=== PATIENT | female | born 1990 | race Caucasian/White ===

== ENCOUNTER 2016-11-25 08:19 | Emergency (ER) | payer BC ==
[~2016-11-25] VITALS: Ht 160 cm; Wt 94.4 kg
[~2016-11-25 08:19] MED LIST: OMEP20CA9 PO; ONDA4TAB10 SL; ZIPR20CA PO; ZNTT/150 PO
[2016-11-25 08:22] VITALS: Ht 160 cm; Wt 94.4 kg
[2016-11-25] MEDS ORDERED: SODIUM CHLORIDE 0.9% 1000ML 1,000 ML IV STA ×2 (08:34→09:07)
[2016-11-25 08:59] LABS: BASO % 0.3 %; BASO ABS # 0.03 K/uL (0-0.2); COMPLETE YES; EOS % 7.9 %; HEMATOCRIT 44.5 % (37-47); IG% 0.3 %; LYMPH % 25.2 %; LYMPH ABS # 2.76 K/uL (1.2-3.4); MEAN CELL VOLUME 91.2 fL (80-100); MEAN CORPUSCULAR HEMOGLOBIN 32.4 pg (25-34); MEAN CORPUSCULAR HGB CONC 35.5 g/dl (32-36); MONO % 4.6 %; NEUT % 61.7 %; PLATELET COUNT 235 K/uL (130-400); RED BLOOD COUNT 4.88 M/uL (4.2-5.4); WHITE BLOOD COUNT 10.97 K/uL (4.8-10.8)
[2016-11-25 09:05] LABS: CREATININE 0.84 mg/dl (0.60-1.20); POTASSIUM 3.8 mmol/L (3.5-5.1)
[2016-11-25] MEDS ORDERED: PROMETHAZINE HCL INJ 25 MG in SODIUM CHLORIDE 0.9% 50ML 50 ML IV STA (09:07)
[2016-11-25] MEDS ORDERED: FAMOTIDINE 20MG/102 ML D5W IV STA (09:07)
[2016-11-25] MEDS ORDERED: DiphenhydrAMINE HCL 50 MG/ML VIAL IV STA (09:07)
[2016-11-25] MEDS ORDERED: FENTANYL CITRATE INJ 50 MCG/1 ML 2 ML VIAL IV STA (09:07)
[2016-11-25] MEDS ORDERED: GI COCKTAIL PO SCH (11:59)
[2016-11-25] MEDS ORDERED: FENTANYL CITRATE INJ 50 MCG/1 ML 2 ML VIAL IV ONE (12:00)
[2016-11-25] MEDS ORDERED: ALUMINUM/MAGNESIUM SUSP 30 ML UDC ONE (12:20)
[2016-11-25] MEDS ORDERED: LIDOCAINE HCL 2% VISC SOLN 20 ML UDC ONE (12:20)
[2016-11-25 13:08] LABS: URINE APPEARANCE CLEAR (CLEAR); URINE BILIRUBIN NEG (NEG); URINE COLOR DK YELLOW; URINE NITRITE NEG (NEG); URINE SPECIFIC GRAVITY 1.031 (1.000-1.030); UROBILINOGEN NEG (NEG); ZZUR CULT IF INDIC CLEAN CATCH NO
[2016-11-25 13:21] LABS: MANUAL MICROSCOPIC REQUIRED? NO; REVIEW REQ? NO
[2016-11-25] MEDS ORDERED: OMEP40CA41 PO (13:47)
[2016-11-25] MEDS ORDERED: PROM25SU28 PR (13:47)
[2016-11-25 13:57] VITALS: BP 113/73; PULSE 70; TEMP 36.7; O2SAT 95
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
[2017-05-10] MEDS ORDERED: METO-157 PO (13:54)
== END 2016-11-25 13:55 | disposition home or self-care (01) ==
LOC: C.EDB 08:20
DX: R10.10 Upper abdominal pain, unspecified (principal); G43.A0 Cyclical vomiting, in migraine, not intractable; K21.9 Gastro-esophageal reflux disease without esophagitis; F32.9 Major depressive disorder, single episode, unspecified; Z79.899 Other long term (current) drug therapy; F41.9 Anxiety disorder, unspecified

== ENCOUNTER 2016-11-27 16:07 | Emergency (ER) | payer BC ==
[~2016-11-27] VITALS: Ht 160 cm; Wt 96.7 kg
[~2016-11-27 16:07] MED LIST changes: +OMEP40CA41 PO; +PROM25SU28 PR
[2016-11-27 16:11] VITALS: TEMP 36.9; Ht 160 cm; Wt 96.7 kg
[2016-11-27] MEDS ORDERED: ONDANSETRON INJ 2 MG/ML 2 ML VIAL IV STA (16:23)
[2016-11-27] MEDS ORDERED: HYDROmorphone INJ 1 MG/ML SYR IV STA ×2 (16:23→17:37)
[2016-11-27] MEDS ORDERED: SODIUM CHLORIDE 0.9% 1000ML 1,000 ML IV STA (16:23)
[2016-11-27 16:33] VITALS: O2SAT 100
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
[2016-11-27 16:42] LABS: BASO % 0.1 %; BASO ABS # 0.02 K/uL (0-0.2); COMPLETE YES; EOS % 0.8 %; HEMATOCRIT 43.7 % (37-47); IG% 0.3 %; LYMPH % 15.6 %; LYMPH ABS # 2.16 K/uL (1.2-3.4); MEAN CELL VOLUME 88.5 fL (80-100); MEAN CORPUSCULAR HEMOGLOBIN 31.4 pg (25-34); MEAN CORPUSCULAR HGB CONC 35.5 g/dl (32-36); MEAN PLATELET VOLUME 10.2 fL (7.4-10.4); MONO % 3.7 %; NEUT % 79.5 %; PLATELET COUNT 258 K/uL (130-400); RED BLOOD COUNT 4.94 M/uL (4.2-5.4); WHITE BLOOD COUNT 13.87 K/uL (4.8-10.8)
[2016-11-27 16:47] LABS: ISTAT CARBON DIOXIDE 18 mEq/l (24-31); ISTAT CHLORIDE 106 mEq/L (101-112); ISTAT CREATININE 0.7 mg/dl (0.6-1.3); ISTAT HEMATOCRIT 43 % (37-47); ISTAT HEMOGLOBIN 14.6 g/dl (12.0-16.0); ISTAT IONIZED CALCIUM 1.12 mmol/l (1.12-1.32); ISTAT SODIUM 142 mEq/L (135-144)
--- NOTE | 2016-11-27 16:50 | DIAGNOSTIC IMAGING REPORT ---
SINGLE VIEW CHEST CLINICAL HISTORY: Atypical chest pain. FINDINGS: An AP, portable, upright chest radiograph is compared to study dated 03/12/2015. The examination is mildly degraded by portable technique and patient rotation. The cardiomediastinal silhouette is unremarkable. The lungs and pleural spaces are clear. No pneumothorax is seen. The bony thorax is grossly intact. Cholecystectomy clips are seen in the right upper quadrant. IMPRESSION: No active disease in the chest. Electronically signed by: Joey Rahman M.D. 11/27/2016 4:48 PM Dictated Date/Time: 11/27/2016 4:48 PM
[2016-11-27 17:05] LABS: PREG INTERNAL NEGATIVE QC NEG CLEAR BACKGROUND; PREG INTERNAL POSITIVE QC POS CONTROL LINE
[2016-11-27] MEDS ORDERED: LORAZEPAM 2 MG/ML 1 ML VIAL IV STA (17:07)
[2016-11-27 17:13] LABS: ALT/SGPT 27 U/L (12-78); BLOOD UREA NITROGEN 3 mg/dl (7-18); BUN/CREATININE RATIO 3.4 (10-20); CALCIUM 9.4 mg/dl (8.5-10.1); CARBON DIOXIDE 19 mmol/L (21-32); CHLORIDE 110 mmol/L (98-107); CREATININE 0.94 mg/dl (0.60-1.20); GLUCOSE 113 mg/dl (70-99); POTASSIUM 3.2 mmol/L (3.5-5.1); SODIUM 143 mmol/L (136-145)
[2016-11-27] MEDS ORDERED: OPTIRAY 320 IV PRN (17:15)
[2016-11-27 17:17] LABS: ALKALINE PHOSPHATASE 82 U/L (45-117); AST/SGOT 18 U/L (15-37); CKMB/CK RATIO 0.7 (0-3.0)
--- NOTE | 2016-11-27 17:20 | DIAGNOSTIC IMAGING REPORT ---
CT ANGIOGRAPHY OF THE CHEST, PULMONARY EMBOLUS PROTOCOL CLINICAL HISTORY: Left-sided chest pain and difficulty breathing. COMPARISON STUDY: Chest radiograph March 12, 2015 and November 27, 2016. TECHNIQUE: Following IV administration of 85 mL of Optiray-320, helical axial images of the chest were obtained utilizing the pulmonary embolus protocol. Maximal intensity projections and sagittal and coronal reformats were viewed on an independent 3D workstation. IV contrast was administered without complication. CT DOSE: 511.06 mGy.cm FINDINGS: No pulmonary emboli are identified. There is no evidence of thoracic aortic dissection. The size of the heart is normal. There is no pericardial effusion. Central airways are patent. There is no consolidation to suggest pneumonia. No pneumothorax or pleural effusion is present. Bony thorax and upper abdomen are unremarkable. There is a small cyst within the left lower lobe. Minimal opacities represent atelectasis. IMPRESSION: 1. No pulmonary emboli identified. 2. No acute intrathoracic findings. Electronically signed by: Timmy Campbell M.D. 11/27/2016 5:19 PM Dictated Date/Time: 11/27/2016 5:12 PM
[2016-11-27] MEDS ORDERED: POTASSIUM CHLORIDE 10 MEQ TABCR PO STA (17:50)
--- NOTE | 2016-11-27 18:23 | DIAGNOSTIC IMAGING REPORT ---
ABDOMINAL SERIES CLINICAL HISTORY: Abdominal pain. COMPARISON STUDY: CT of the abdomen and pelvis April 09, 2016. FINDINGS: Note is made of cholecystectomy clips and contrast within the collecting systems, ureters and bladder from recent contrast-enhanced chest CT. There is no free air. The bowel gas pattern is normal. Visualized skeletal structures are unremarkable. No urinary calculi are identified although sensitivity is diminished given the presence of contrast within the collecting systems. IMPRESSION: No free air or evidence of bowel obstruction. Electronically signed by: Timmy Campbell M.D. 11/27/2016 6:22 PM Dictated Date/Time: 11/27/2016 6:20 PM
[2016-11-27 19:02] LABS: URINE APPEARANCE CLEAR (CLEAR); URINE BILIRUBIN NEG (NEG); URINE COLOR YELLOW; URINE NITRITE NEG (NEG); URINE PH 8.5 (4.5-7.5); URINE SPECIFIC GRAVITY > 1.045 (1.000-1.030); UROBILINOGEN NEG (NEG); ZZUR CULT IF INDIC CLEAN CATCH NO
[2016-11-27 19:08] LABS: MANUAL MICROSCOPIC REQUIRED? NO; REVIEW REQ? NO
[2016-11-27] MEDS ORDERED: MAGNESIUM CITRATE 296 ML/BTL PO STA (19:18)
[2016-11-27] MEDS ORDERED: ONDA4TAB10 SL (19:20)
[2016-11-27] MEDS ORDERED: OXYC-57 PO (19:20)
[2016-11-27 19:33] VITALS: BP 115/73; PULSE 80; O2SAT 96
[2017-05-10] MEDS ORDERED: METO-157 PO (13:54)
== END 2016-11-27 19:33 | disposition home or self-care (01) ==
LOC: C.EDB 16:08
DX: R10.30 Lower abdominal pain, unspecified (principal); K21.9 Gastro-esophageal reflux disease without esophagitis; F32.9 Major depressive disorder, single episode, unspecified; F41.9 Anxiety disorder, unspecified; N83.209 Unspecified ovarian cyst, unspecified side; Z87.440 Personal history of urinary (tract) infections; Z87.891 Personal history of nicotine dependence; Z79.899 Other long term (current) drug therapy; Z90.49 Acquired absence of other specified parts of digestive tract; Z98.890 Other specified postprocedural states; Z88.8 Allergy status to other drugs, medicaments and biological substances; Z82.49 Family history of ischemic heart disease and other diseases of the circulatory system

== ENCOUNTER 2017-02-07 19:01 | Emergency (ER) | payer BC ==
[~2017-02-07] VITALS: Ht 160 cm; Wt 93.8 kg
[~2017-02-07 19:01] MED LIST changes: -OMEP40CA41 PO; +OXYC-57 PO
[2017-02-07 19:05] VITALS: TEMP 36.9; Ht 160 cm; Wt 93.8 kg
[2017-02-07] MEDS ORDERED: PROCHLORPERAZINE 5 MG/ML 2 ML VIAL IV STA (19:20)
[2017-02-07] MEDS ORDERED: GI COCKTAIL PO STA (19:20)
[2017-02-07] MEDS ORDERED: DiphenhydrAMINE HCL 50 MG/ML VIAL IV STA (19:20)
[2017-02-07] MEDS ORDERED: FAMOTIDINE IV INJ 20 MG in DEXTROSE 5% 100ML 100 ML IV STA (19:20)
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
[2017-02-07] MEDS ORDERED: ALUMINUM/MAGNESIUM SUSP 30 ML UDC ONE (19:38)
[2017-02-07] MEDS ORDERED: LIDOCAINE HCL 2% VISC SOLN 20 ML UDC ONE (19:38)
[2017-02-07 19:42] LABS: BASO % 0.3 %; BASO ABS # 0.03 K/uL (0-0.2); COMPLETE YES; IG% 0.2 %; LYMPH % 22.3 %; LYMPH ABS # 2.54 K/uL (1.2-3.4); MEAN CELL VOLUME 91.1 fL (80-100); MEAN CORPUSCULAR HEMOGLOBIN 31.3 pg (25-34); MEAN CORPUSCULAR HGB CONC 34.4 g/dl (32-36); MEAN PLATELET VOLUME 9.9 fL (7.4-10.4); MONO % 4.7 %; NEUT % 64.5 %; PLATELET COUNT 269 K/uL (130-400); RED BLOOD COUNT 5.27 M/uL (4.2-5.4); WHITE BLOOD COUNT 11.38 K/uL (4.8-10.8)
[2017-02-07] MEDS ORDERED: SODIUM CHLORIDE 0.9% 1000ML 1,000 ML IV STA (19:47)
[2017-02-07 19:48] LABS: BUN/CREATININE RATIO 10.8 (10-20); POTASSIUM 3.6 mmol/L (3.5-5.1)
[2017-02-07 21:16] VITALS: BP 122/80; PULSE 69; O2SAT 95
[2017-05-10] MEDS ORDERED: METO-157 PO (13:54)
[2017-08-15] MEDS ORDERED: ONDA4TAB46 PO (15:51)
[2017-08-15] MEDS ORDERED: CITA10TA4 PO (16:17)
[2017-08-15] MEDS ORDERED: OMEP20CA9 PO (16:17)
[2017-08-15] MEDS ORDERED: METO10TA3 PO (16:17)
[2017-08-15] MEDS ORDERED: PROM25SU28 PR (16:17)
[2017-08-15] MEDS ORDERED: AMOX1TAB43 PO (16:17)
[2017-08-15] MEDS ORDERED: CALC500C3 PO (16:20)
[2017-08-15] MEDS ORDERED: ZNTT/150 PO (16:20)
[2017-08-15] MEDS ORDERED: COEN100C11 PO (16:20)
[2017-08-15] MEDS ORDERED: ASCO-63 PO (16:20)
[2017-08-15] MEDS ORDERED: BIOTCAP2 PO (16:20)
[2017-08-15] MEDS ORDERED: PPTBS PO (16:20)
[2017-08-23] MEDS ORDERED: AZIT-57 PO (12:38)
== END 2017-02-07 21:16 | disposition home or self-care (01) ==
LOC: C.EDB 19:02 → C.EDC 21:16
DX: R11.2 Nausea with vomiting, unspecified (principal); R10.10 Upper abdominal pain, unspecified; K21.9 Gastro-esophageal reflux disease without esophagitis; F41.9 Anxiety disorder, unspecified; F32.9 Major depressive disorder, single episode, unspecified; N83.209 Unspecified ovarian cyst, unspecified side; Z90.49 Acquired absence of other specified parts of digestive tract; Z98.890 Other specified postprocedural states; Z88.8 Allergy status to other drugs, medicaments and biological substances; Z82.49 Family history of ischemic heart disease and other diseases of the circulatory system

== ENCOUNTER 2017-04-01 07:37 | Emergency (ER) | payer BC ==
[~2017-04-01] VITALS: Ht 160 cm; Wt 92.1 kg
[~2017-04-01 07:37] MED LIST changes: -OXYC-57 PO; -ZIPR20CA PO
[2017-04-01 07:41] VITALS: TEMP 36.7; Ht 160 cm; Wt 92.1 kg
[2017-04-01] MEDS ORDERED: METOCLOPRAMIDE HCL INJ 5 MG/ML 2 ML VIAL IV STA (08:06)
[2017-04-01] MEDS ORDERED: SODIUM CHLORIDE 0.9% 1000ML 1,000 ML IV STA (08:06)
[2017-04-01] MEDS ORDERED: HYDROmorphone INJ 1 MG/ML SYR IV STA (08:18)
[2017-04-01 08:20] LABS: BASO % 0.3 %; BASO ABS # 0.03 K/uL (0-0.2); COMPLETE YES; EOS % 6.6 %; HEMATOCRIT 43.9 % (37-47); IG% 0.2 %; LYMPH ABS # 1.71 K/uL (1.2-3.4); MEAN CELL VOLUME 91.1 fL (80-100); MEAN CORPUSCULAR HEMOGLOBIN 31.1 pg (25-34); MEAN CORPUSCULAR HGB CONC 34.2 g/dl (32-36); MEAN PLATELET VOLUME 10.4 fL (7.4-10.4); MONO % 5.4 %; NEUT % 68.5 %; PLATELET COUNT 247 K/uL (130-400); RED BLOOD COUNT 4.82 M/uL (4.2-5.4)
[2017-04-01] MEDS ORDERED: ACETAMINOPHEN IV 100 ML IV STA (08:22)
[2017-04-01 08:26] LABS: BUN/CREATININE RATIO 8.8 (10-20); CREATININE 0.99 mg/dl (0.60-1.20); POTASSIUM 3.6 mmol/L (3.5-5.1)
[2017-04-01 08:28] LABS: CALCIUM 8.9 mg/dl (8.5-10.1)
[2017-04-01] MEDS ORDERED: FAMOTIDINE 20 MG TAB PO STA (08:53)
[2017-04-01] MEDS ORDERED: SUCRALFATE 1 GM TAB PO STA (08:53)
[2017-04-01] MEDS ORDERED: GI COCKTAIL PO STA (08:53)
[2017-04-01] MEDS ORDERED: ALUMINUM/MAGNESIUM SUSP 30 ML UDC ONE (09:04)
[2017-04-01] MEDS ORDERED: LIDOCAINE HCL 2% VISC SOLN 20 ML UDC ONE (09:04)
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
--- NOTE | 2017-04-01 09:25 | DIAGNOSTIC IMAGING REPORT ---
ABDOMEN 2VIEW W/PA CHEST RTN CLINICAL HISTORY: Pt c/o diffuse abd pain COMPARISON STUDY: No previous studies for comparison. FINDINGS: The soft tissues, psoas shadows, renal outlines and intestinal gas pattern appear normal. There is no evidence for bowel obstruction. There is no evidence for free intraperitoneal air. No abnormal abdominal calcifications are seen. A frontal view of the chest was performed and is unremarkable. IMPRESSION: Normal study. Electronically signed by: Bartolome Denton M.D. 04/01/2017 9:24 AM Dictated Date/Time: 04/01/2017 9:13 AM
[2017-04-01] MEDS ORDERED: PROCHLORPERAZINE 5 MG/ML 2 ML VIAL IV STA (09:54)
[2017-04-01] MEDS ORDERED: DiphenhydrAMINE HCL 50 MG/ML VIAL IV STA (09:54)
[2017-04-01 10:04] LABS: PREG INTERNAL NEGATIVE QC NEG CLEAR BACKGROUND; PREG INTERNAL POSITIVE QC POS CONTROL LINE
[2017-04-01 10:20] VITALS: BP 108/67; PULSE 47; O2SAT 97
[2017-04-01] MEDS ORDERED: METO-157 PO (10:28)
[2017-04-01] MEDS ORDERED: OXYC-57 PO (10:28)
[2017-04-01 10:35] LABS: URINE APPEARANCE CLEAR (CLEAR); URINE COLOR DK YELLOW; URINE EPITHELIAL CELL AUTO >30 /lpf (0-5); URINE NITRITE NEG (NEG); URINE SPECIFIC GRAVITY 1.038 (1.000-1.030); UROBILINOGEN NEG (NEG)
[2017-04-01 10:38] LABS: MANUAL MICROSCOPIC REQUIRED? NO; REVIEW REQ? YES; URINE BILIRUBIN NEG (NEG)
[2017-04-01 10:51] LABS: URINE MUCUS PRESENT (NONE PRSENT)
[2017-04-01 10:54] LABS: BENZODIAZEPINE, URINE NEG (NEG); COCAINE,URINE NEG (NEG); PHENCYCLIDINE, URINE NEG (NEG)
[2017-04-04 15:49] LABS: COD UR NEGATIVE NG/ML (CUTOFF=50); HYDROCOD UR NEGATIVE NG/ML (CUTOFF=50); HYDROMOR UR 696 NG/ML (CUTOFF=50); MORPHINE UR NEGATIVE NG/ML (CUTOFF=50); NORHYDROCODONE CONF UR NEGATIVE NG/ML (CUTOFF=50); OXYMORPH UR NEGATIVE NG/ML (CUTOFF=50)
[2017-05-10] MEDS ORDERED: METO-157 PO (13:54)
[2017-08-15] MEDS ORDERED: ONDA4TAB46 PO (15:51)
[2017-08-15] MEDS ORDERED: OMEP20CA9 PO (16:17)
[2017-08-15] MEDS ORDERED: CITA10TA4 PO (16:17)
[2017-08-15] MEDS ORDERED: METO10TA3 PO (16:17)
[2017-08-15] MEDS ORDERED: AMOX1TAB43 PO (16:17)
[2017-08-15] MEDS ORDERED: PROM25SU28 PR (16:17)
[2017-08-15] MEDS ORDERED: ZNTT/150 PO (16:20)
[2017-08-15] MEDS ORDERED: ASCO-63 PO (16:20)
[2017-08-15] MEDS ORDERED: CALC500C3 PO (16:20)
[2017-08-15] MEDS ORDERED: PPTBS PO (16:20)
[2017-08-15] MEDS ORDERED: BIOTCAP2 PO (16:20)
[2017-08-15] MEDS ORDERED: COEN100C11 PO (16:20)
[2017-08-23] MEDS ORDERED: AZIT-57 PO (12:38)
== END 2017-04-01 10:35 | disposition home or self-care (01) ==
LOC: C.EDB 07:38 → C.EDA 10:35
DX: R11.10 Vomiting, unspecified (principal); K21.9 Gastro-esophageal reflux disease without esophagitis; F41.9 Anxiety disorder, unspecified; F32.9 Major depressive disorder, single episode, unspecified; N83.209 Unspecified ovarian cyst, unspecified side; Z87.440 Personal history of urinary (tract) infections; Z88.8 Allergy status to other drugs, medicaments and biological substances; Z90.49 Acquired absence of other specified parts of digestive tract; Z98.890 Other specified postprocedural states; Z82.49 Family history of ischemic heart disease and other diseases of the circulatory system

== ENCOUNTER 2017-05-03 14:40 | Emergency (ER) | payer BC ==
[~2017-05-03] VITALS: Ht 160 cm; Wt 87.0 kg
[~2017-05-03 14:40] MED LIST changes: +METO-157 PO; -ONDA4TAB10 SL; +OXYC-57 PO; -ZNTT/150 PO
[2017-05-03 14:45] VITALS: TEMP 36.8; Ht 160 cm; Wt 87.0 kg
[2017-05-03] MEDS ORDERED: SODIUM CHLORIDE 0.9% 1000ML 1,000 ML IV STA ×2 (15:17→15:23)
[2017-05-03] MEDS ORDERED: PROMETHAZINE HCL INJ 25 MG in SODIUM CHLORIDE 0.9% 50ML 50 ML IV STA (15:23)
[2017-05-03] MEDS ORDERED: MoRPHine SULFATE 4 MG/ML 1 ML CARP\\VIAL IV STA (15:23)
[2017-05-03] MEDS ORDERED: DiphenhydrAMINE HCL 50 MG/ML VIAL IV STA (15:23)
[2017-05-03] MEDS ORDERED: FAMOTIDINE IV INJ 20 MG in DEXTROSE 5% 100ML 100 ML IV STA (15:23)
[2017-05-03] MEDS ORDERED: PROM1SUP19 PR (15:48)
[2017-05-03] MEDS ORDERED: METO-157 PO (15:48)
[2017-05-03] MEDS ORDERED: ONDA4TAB46 PO (15:51)
[2017-05-03 16:01] LABS: BASO % 0.2 %; BASO ABS # 0.02 K/uL (0-0.2); COMPLETE YES; EOS % 1.7 %; HEMATOCRIT 45.3 % (37-47); IG% 0.3 %; LYMPH % 23.3 %; LYMPH ABS # 2.74 K/uL (1.2-3.4); MEAN CELL VOLUME 87.1 fL (80-100); MEAN CORPUSCULAR HEMOGLOBIN 31.5 pg (25-34); MEAN CORPUSCULAR HGB CONC 36.2 g/dl (32-36); MEAN PLATELET VOLUME 10.7 fL (7.4-10.4); MONO % 4.8 %; NEUT % 69.7 %; PLATELET COUNT 263 K/uL (130-400); WHITE BLOOD COUNT 11.75 K/uL (4.8-10.8)
[2017-05-03 16:18] LABS: BUN/CREATININE RATIO 10.5 (10-20); CALCIUM 9.3 mg/dl (8.5-10.1); CREATININE 0.98 mg/dl (0.60-1.20); POTASSIUM 3.2 mmol/L (3.5-5.1)
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
[2017-05-03 18:07] LABS: URINE APPEARANCE CLEAR (CLEAR); URINE BILIRUBIN NEG (NEG); URINE COLOR DK YELLOW; URINE EPITHELIAL CELL AUTO >30 /lpf (0-5); URINE NITRITE NEG (NEG); URINE SPECIFIC GRAVITY 1.029 (1.000-1.030); UROBILINOGEN NEG (NEG); ZZUR CULT IF INDIC CLEAN CATCH YES
[2017-05-03 18:13] VITALS: BP 152/88; PULSE 83; O2SAT 98
[2017-05-03 18:26] LABS: MANUAL MICROSCOPIC REQUIRED? NO; REVIEW REQ? YES
[2017-05-04] MEDS ORDERED: PRLSR20 PO (22:43)
[2017-05-04] MEDS ORDERED: POTA8CAP6 PO (22:43)
[2017-05-10] MEDS ORDERED: METO-157 PO (13:54)
== END 2017-05-03 18:17 | disposition home or self-care (01) ==
LOC: C.EDB 14:42 → C.EDC 18:17
DX: G43.A0 Cyclical vomiting, in migraine, not intractable (principal); R10.13 Epigastric pain; R55 Syncope and collapse

== ENCOUNTER 2017-05-04 19:20 | Emergency (ER) | payer BC ==
[~2017-05-04 19:20] MED LIST changes: +ONDA4TAB46 PO; -OXYC-57 PO; +PROM1SUP19 PR; -PROM25SU28 PR
[2017-05-04 19:27] VITALS: TEMP 37.1; Ht 160 cm
[2017-05-04] MEDS ORDERED: PROMETHAZINE HCL INJ 25 MG in SODIUM CHLORIDE 0.9% 50ML 50 ML IV STA (19:57)
[2017-05-04] MEDS ORDERED: SODIUM CHLORIDE 0.9% 1000ML 1,000 ML IV STA ×2 (19:57→21:49)
[2017-05-04] MEDS ORDERED: DiphenhydrAMINE HCL 50 MG/ML VIAL IV STA (19:57)
[2017-05-04] MEDS ORDERED: LORAZEPAM 2 MG/ML 1 ML VIAL IV STA (20:08)
[2017-05-04 20:31] LABS: BASO % 0.1 %; BASO ABS # 0.01 K/uL (0-0.2); COMPLETE YES; EOS % 0.1 %; HEMATOCRIT 43.1 % (37-47); IG% 0.2 %; LYMPH % 12.9 %; LYMPH ABS # 1.94 K/uL (1.2-3.4); MEAN CELL VOLUME 86.5 fL (80-100); MEAN CORPUSCULAR HEMOGLOBIN 31.7 pg (25-34); MEAN CORPUSCULAR HGB CONC 36.7 g/dl (32-36); MEAN PLATELET VOLUME 10.4 fL (7.4-10.4); MONO % 6.2 %; NEUT % 80.5 %; PLATELET COUNT 268 K/uL (130-400); RED BLOOD COUNT 4.98 M/uL (4.2-5.4); WHITE BLOOD COUNT 15.04 K/uL (4.8-10.8)
[2017-05-04] MEDS ORDERED: HYDROmorphone INJ 0.5 MG/0.5 ML SYR IV STA (20:54)
[2017-05-04 21:07] LABS: BLOOD UREA NITROGEN 8 mg/dl (7-18); BUN/CREATININE RATIO 8.8 (10-20); CALCIUM 9.3 mg/dl (8.5-10.1); CARBON DIOXIDE 23 mmol/L (21-32); CHLORIDE 109 mmol/L (98-107); CREATININE 0.89 mg/dl (0.60-1.20); GLUCOSE 96 mg/dl (70-99); POTASSIUM 3.4 mmol/L (3.5-5.1); SODIUM 141 mmol/L (136-145)
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
[2017-05-04] MEDS ORDERED: GI COCKTAIL PO STA (21:37)
[2017-05-04] MEDS ORDERED: FAMOTIDINE 20MG/102 ML D5W IV STA (21:37)
[2017-05-04 22:04] LABS: GASTRIC OCCULT BLOOD POS (NEG); GASTRIC OCCULT BLOOD PH 4
[2017-05-04] MEDS ORDERED: ALUMINUM/MAGNESIUM SUSP 30 ML UDC ONE (22:14)
[2017-05-04] MEDS ORDERED: LIDOCAINE HCL 2% VISC SOLN 20 ML UDC ONE (22:14)
[2017-05-04] MEDS ORDERED: PRLSR20 PO (22:43)
[2017-05-04] MEDS ORDERED: POTA8CAP6 PO (22:43)
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
[2017-05-05 00:07] VITALS: BP 111/75; PULSE 83; O2SAT 97
[2017-05-10] MEDS ORDERED: METO-157 PO (13:54)
== END 2017-05-05 00:09 | disposition home or self-care (01) ==
LOC: C.EDB 19:21 → C.EDC 05-05 00:09
DX: R11.10 Vomiting, unspecified (principal); R10.84 Generalized abdominal pain; K92.2 Gastrointestinal hemorrhage, unspecified; F41.9 Anxiety disorder, unspecified; F32.9 Major depressive disorder, single episode, unspecified; K21.9 Gastro-esophageal reflux disease without esophagitis; Z87.440 Personal history of urinary (tract) infections; F12.21 Cannabis dependence, in remission; Z82.49 Family history of ischemic heart disease and other diseases of the circulatory system; Z83.6 Family history of other diseases of the respiratory system; Z87.891 Personal history of nicotine dependence

== ENCOUNTER 2017-05-05 15:52 | Emergency (ER) | payer BC ==
[~2017-05-05] VITALS: Ht 160 cm; Wt 85.0 kg
[~2017-05-05 15:52] MED LIST changes: -OMEP20CA9 PO; +POTA8CAP6 PO; +PRLSR20 PO
[2017-05-05 15:56] VITALS: TEMP 36.9; Ht 160 cm; Wt 85.0 kg
[2017-05-05] MEDS ORDERED: SODIUM CHLORIDE 0.9% 1000ML 1,000 ML IV STA (16:14)
[2017-05-05] MEDS ORDERED: ONDANSETRON INJ 2 MG/ML 2 ML VIAL IV STA (16:14)
[2017-05-05] MEDS ORDERED: PROCHLORPERAZINE 5 MG/ML 2 ML VIAL IV STA (16:14)
[2017-05-05] MEDS ORDERED: CAPSAICIN CR 0.075% 60 GM TUBE EXT ONE (16:15)
[2017-05-05] MEDS ORDERED: FAMOTIDINE 20MG/102 ML D5W IV STA (16:48)
[2017-05-05 16:50] LABS: BASO % 0.2 %; BASO ABS # 0.02 K/uL (0-0.2); COMPLETE YES; EOS % 0.2 %; HEMATOCRIT 43.8 % (37-47); IG% 0.2 %; LYMPH % 17.8 %; LYMPH ABS # 2.35 K/uL (1.2-3.4); MEAN CELL VOLUME 86.9 fL (80-100); MEAN CORPUSCULAR HEMOGLOBIN 30.6 pg (25-34); MEAN CORPUSCULAR HGB CONC 35.2 g/dl (32-36); MEAN PLATELET VOLUME 10.5 fL (7.4-10.4); MONO % 5.1 %; NEUT % 76.5 %; PLATELET COUNT 245 K/uL (130-400); RED BLOOD COUNT 5.04 M/uL (4.2-5.4); WHITE BLOOD COUNT 13.22 K/uL (4.8-10.8)
[2017-05-05] MEDS ORDERED: POTASSIUM CHLR 10 MEQ / WTR 10 MEQ in PREMIXED WATER 100 ML IV STA (16:54)
[2017-05-05] MEDS ORDERED: ALUMINUM/MAGNESIUM SUSP 30 ML UDC ONE (16:57)
[2017-05-05] MEDS ORDERED: LIDOCAINE HCL 2% VISC SOLN 20 ML UDC ONE (16:57)
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
[2017-05-05] MEDS ORDERED: GI COCKTAIL PO ONE (17:00)
[2017-05-05 17:12] LABS: BUN/CREATININE RATIO 8.3 (10-20); CALCIUM 9.3 mg/dl (8.5-10.1); CREATININE 0.78 mg/dl (0.60-1.20); POTASSIUM 3.3 mmol/L (3.5-5.1)
[2017-05-05] MEDS ORDERED: POTASSIUM CHLORIDE 10 MEQ / 100ML WTR IV ONE (17:45)
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
[2017-05-05 19:04] VITALS: BP 132/79; PULSE 99; O2SAT 98
[2017-05-10] MEDS ORDERED: METO-157 PO (13:54)
== END 2017-05-05 19:05 | disposition home or self-care (01) ==
LOC: C.EDB 15:53
DX: R11.2 Nausea with vomiting, unspecified (principal); F41.9 Anxiety disorder, unspecified; F32.9 Major depressive disorder, single episode, unspecified; K21.9 Gastro-esophageal reflux disease without esophagitis; Z87.440 Personal history of urinary (tract) infections; F12.21 Cannabis dependence, in remission; Z90.49 Acquired absence of other specified parts of digestive tract; Z87.891 Personal history of nicotine dependence; Z79.899 Other long term (current) drug therapy; Z82.49 Family history of ischemic heart disease and other diseases of the circulatory system

== ENCOUNTER 2017-05-07 16:20 | Observation (INO) | payer BC ==
[~2017-05-07] VITALS: Ht 160 cm; Wt 87.0 kg
[~2017-05-07 16:20] MED LIST changes: -POTA8CAP6 PO
[2017-05-07] MEDS ORDERED: SODIUM CHLORIDE 0.9% 1000ML 1,000 ML IV STA (17:23)
[2017-05-07] MEDS ORDERED: PROCHLORPERAZINE 5 MG/ML 2 ML VIAL IV STA (17:26)
[2017-05-07] MEDS ORDERED: LORAZEPAM 2 MG/ML 1 ML VIAL IV STA (17:26)
[2017-05-07] MEDS ORDERED: ONDANSETRON INJ 2 MG/ML 2 ML VIAL IV STA (17:26)
[2017-05-07] MEDS ORDERED: HYDROmorphone INJ 0.5 MG/0.5 ML SYR IV STA (17:26)
[2017-05-07] MEDS ORDERED: DiphenhydrAMINE HCL 50 MG/ML VIAL IV STA (17:26)
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
[2017-05-07 18:08] LABS: BASO % 0.1 %; BASO ABS # 0.02 K/uL (0-0.2); COMPLETE YES; EOS % 0.1 %; HEMATOCRIT 49.3 % (37-47); IG% 0.2 %; LYMPH % 11.5 %; LYMPH ABS # 1.71 K/uL (1.2-3.4); MEAN CELL VOLUME 84.6 fL (80-100); MEAN CORPUSCULAR HGB CONC 35.5 g/dl (32-36); MEAN PLATELET VOLUME 10.7 fL (7.4-10.4); MONO % 3.8 %; NEUT % 84.3 %; PLATELET COUNT 286 K/uL (130-400); RED BLOOD COUNT 5.83 M/uL (4.2-5.4); WHITE BLOOD COUNT 14.82 K/uL (4.8-10.8)
[2017-05-07 18:29] LABS: URINE APPEARANCE CLEAR (CLEAR); URINE COLOR DK YELLOW; URINE EPITHELIAL CELL AUTO >30 /lpf (0-5); URINE NITRITE NEG (NEG); URINE SPECIFIC GRAVITY 1.038 (1.000-1.030); UROBILINOGEN NEG (NEG); ZZUR CULT IF INDIC CLEAN CATCH YES
[2017-05-07 18:32] LABS: MANUAL MICROSCOPIC REQUIRED? NO; REVIEW REQ? YES
[2017-05-07 18:34] LABS: URINE BILIRUBIN NEG (NEG)
[2017-05-07 18:36] LABS: BUN/CREATININE RATIO 12.7 (10-20); CALCIUM 9.5 mg/dl (8.5-10.1); CREATININE 0.91 mg/dl (0.60-1.20); MAGNESIUM 2.5 mg/dl (1.8-2.4); POTASSIUM 3.2 mmol/L (3.5-5.1); PREG INTERNAL NEGATIVE QC NEG CLEAR BACKGROUND; PREG INTERNAL POSITIVE QC POS CONTROL LINE
[2017-05-07 18:40] LABS: ALB/GLOB RATIO 1.4 (0.9-2)
[2017-05-07 18:50] LABS: BENZODIAZEPINE, URINE NEG (NEG); COCAINE,URINE NEG (NEG); PHENCYCLIDINE, URINE NEG (NEG)
[2017-05-07] MEDS ORDERED: ACETAMINOPHEN 325 MG TAB PO PRN (19:30)
[2017-05-07] MEDS ORDERED: HYDROmorphone INJ 0.5 MG/0.5 ML SYR IV PRN (19:30)
[2017-05-07] MEDS ORDERED: ONDANSETRON INJ 2 MG/ML 2 ML VIAL IV PRN (19:30)
[2017-05-07] MEDS ORDERED: IV FLUIDS COMPLETED PRN (19:45)
[2017-05-07] MEDS: D5W AND 1/2NSS + 20MEQ KCL 1,000 ML IV SCH (20:50)
[2017-05-07] MEDS: POTASSIUM CHLR 10 MEQ / WTR 10 MEQ in PREMIXED WATER 100 ML IV SCH ×2 (20:50→23:14)
[2017-05-07] MEDS: PANTOprazole INJ 40 MG in SYRINGE 0 ML IV SCH (20:59)
[2017-05-07 21:55] VITALS: BP 117/70; TEMP 36.9; O2SAT 95; Ht 160 cm; Wt 87.0 kg
[2017-05-07 23:15] VITALS: BP 102/66; PULSE 74; TEMP 36.9; O2SAT 20; O2SAT 94
[2017-05-08 07:38] VITALS: BP 108/69; PULSE 65; TEMP 37; O2SAT 97
[2017-05-08 07:59] LABS: BASO % 0.3 %; BASO ABS # 0.03 K/uL (0-0.2); COMPLETE YES; EOS % 3.3 %; HEMATOCRIT 39.8 % (37-47); IG% 0.3 %; LYMPH % 31.1 %; LYMPH ABS # 3.03 K/uL (1.2-3.4); MEAN CELL VOLUME 87.5 fL (80-100); MEAN CORPUSCULAR HEMOGLOBIN 30.8 pg (25-34); MEAN CORPUSCULAR HGB CONC 35.2 g/dl (32-36); MEAN PLATELET VOLUME 10.9 fL (7.4-10.4); MONO % 9.8 %; NEUT % 55.2 %; PLATELET COUNT 202 K/uL (130-400); RED BLOOD COUNT 4.55 M/uL (4.2-5.4); WHITE BLOOD COUNT 9.73 K/uL (4.8-10.8)
[2017-05-08 08:10] LABS: BUN/CREATININE RATIO 10.6 (10-20); CALCIUM 8.3 mg/dl (8.5-10.1); CREATININE 0.93 mg/dl (0.60-1.20); MAGNESIUM 2.3 mg/dl (1.8-2.4); POTASSIUM 3.3 mmol/L (3.5-5.1)
[2017-05-08] MEDS: PANTOprazole INJ 40 MG in SYRINGE 0 ML IV SCH (08:28)
[2017-05-08] MEDS: D5W AND 1/2NSS + 20MEQ KCL 1,000 ML IV SCH ×2 (08:36→13:00)
--- NOTE | 2017-05-08 09:31 | HISTORY & PHYSICAL EXAMINATION ---
DATE OF ADMISSION: 05/07/2017 CHIEF COMPLAINT: Persistent nausea and vomiting. HISTORY OF PRESENT ILLNESS: This is a 26-year-old female with past medical history significant for cyclic vomiting syndrome, possible cannabinoid hyperemesis presents with severe persistent nausea and vomiting. The patient has nausea and vomiting symptoms since last Wednesday. She was in the ER about 4 times since then and with fluids and nausea medication she improved and was discharged. Yesterday she followed with GI as an outpatient and GI did ultrasound of the abdomen which was unremarkable. Labs were also okay, but she came back today with persistent nausea, vomiting and right upper quadrant abdominal pain. She lives with her mother. Last time she smoked marijuana was in April 20 as per her mother . Last couple of episodes of vomiting she had slight amount of blood and when was in the ER a few days ago she also noticed some black specks and was occult blood positive. She says she has some low grade temperature last night. The patient currently received Dilaudid and Ativan in the ER and sleeping. All the history was given by the mother. Also per mother the patient did not have any chest pain or shortness of breath or cough. No headaches. Ambulating okay. No bowel movements for several days because last time she ate was on Wednesday. The patient is hemodynamically stable. ALLERGIES: KETOROLAC, TROMETHAMINE. PAST MEDICAL HISTORY: As mentioned above. PAST SURGICAL HISTORY: Colonoscopy with biopsy, dental surgeries, EGD with biopsies. MEDICATIONS: The patient currently at home on Phenergan 25 mg suppository q. 6 hours p.r.n., Zantac 300 mg p.o. at bedtime, sucralfate a.c. at bedtime, [id number] mg p.o. b.i.d. FAMILY HISTORY: Significant for father has had ear problems, hypertension. Mother has hypertension and heart disorder. SOCIAL HISTORY: Single, former smoker, quit in 2012. Alcohol occasional. Smokes marijuana, last was in April 20. REVIEW OF SYMPTOMS: As per HPI. Rest of review of systems negative. The patient is currently sedated from the Ativan and Dilaudid. PHYSICAL EXAMINATION: GENERAL: The patient is sleeping. HEAD, EYES, EARS, NOSE, AND THROAT: No pallor, no icterus. Pupils equal, round, and reactive to light. NECK: No JVD, no neck masses, no carotid bruits. CARDIOVASCULAR: S1, S2 heard, regular rate and rhythm, no murmur, no gallop. RESPIRATORY SYSTEM: Clear to auscultation bilaterally. No wheezing. No crackles. ABDOMEN: Soft, bowel sounds present. Mild diffuse abdominal discomfort. No guarding, rigidity. Pain is nonfocal. EXTREMITIES: No edema, no erythema. VITAL SIGNS: Temperature 36.9, pulse 80, respiratory rate 16, blood pressure 121/77, oxygen 96% room air. LABORATORY DATA: Sodium of 141, potassium 3.2, chloride 106, bicarbonate 22, BUN 12, creatinine 0.9, serum glucose 85. Lactic acid 1.2, calcium 9.5, magnesium 2.5, total bilirubin 2.7, AST 15, ALT 32, alkaline phosphatase 86, lipase 106. HCG negative. WBC 14.8, hemoglobin 17.5, hematocrit 49.3, platelets 286. Toxicology positive for marijuana urinalysis. Ultrasound of the abdomen done as outpatient was unremarkable. ASSESSMENT AND PLAN: This 26-year-old female presents with persistent nausea and vomiting. 1. Persistent nausea and vomiting. History of cyclic vomiting syndrome, possible cannabis induced hyperemesis. Several ER visits since last week and seen GI as outpatient also. There is plan for EGD. We will observe patient and place on IV fluids, IV antiemetics, IV pain medications, IV Protonix. Consult GI in a.m. for further recommendations. 2. Deep venous thrombosis prophylaxis with TEDs. 3. Disposition. Observation medical floor. LEVEL 1 FULL CODE. MTDD
--- NOTE | 2017-05-08 11:16 | Progress Note ---
Internal Med Progress Note Date of Service: May 08, 2017. Provider Documentation: SUBJECTIVE: Patient is doing well. No nausea, vomiting since she is in hospital. Abdominal pain has almost resolved No constipation, diarrhea, fever, chills. OBJECTIVE: Vital Signs-as noted below Exam: General-AAOX3, no distress Neck-Supple, No JVD Lungs-AEBE, no wheezing, rales, rhonchi Heart-S1, S2 normal, no murmurs Abdomen-Soft, non tender, non distended, BS present Extremities-No edema Lab data as noted below. ASSESSMENT & PLAN: ASSESSMENT AND PLAN: This 26-year-old female known case of cyclical vomiting syndrome, presents with persistent nausea and vomiting. INTRACTABLE NAUSEA/VOMITING With known history of cyclic vomiting syndrome. Has had this for 11 years with all investigations in past negative. Gets these episodes once a month, self resolving within 3-5 days. This time severity was more and thus came to hospital. -Tolerating clear liquid--> advance to regular diet -IV Fluids -Urine toxicology screen positive for Marijuana. Explained at length about side effects and Cannabis hyperemesis syndrome. Understands and agrees to stop it. HYPOKALEMIA, MILD Secondary to above -Replace -Monitor DVT PROPHYLAXIS TEDS DISPOSITION Observation status Ok to discharge home if able to tolerate PO diet. Vital Signs: Date Time Temp Pulse Resp B/P (MAP) Pulse Ox O2 Delivery O2 Flow Rate FiO2 05/08/17 08:00 Room Air 05/08/17 07:38 37.0 65 16 108/69 (82) 97 Room Air 05/08/17 01:00 Room Air 05/07/17 23:15 36.9 74 20 102/66 (78) 94 Room Air 05/07/17 21:55 36.9 16 117/70 95 Room Air 05/07/17 20:13 82 16 117/70 95 05/07/17 19:25 98 16 121/77 96 Room Air 05/07/17 17:51 80 16 150/103 98 Room Air 05/07/17 16:39 36.9 85 20 140/104 98 Room Air Lab Results: Results Past 24 Hours Test 05/07/17 17:50 05/07/17 18:00 05/07/17 18:15 05/08/17 07:14 Range/Units White Blood Count 14.82 9.73 4.8-10.8 K/uL Red Blood Count 5.83 4.55 4.2-5.4 M/uL Hemoglobin 17.5 14.0 12.0-16.0 g/dL Hematocrit 49.3 39.8 37-47 % Mean Corpuscular Volume 84.6 87.5 80-100 fL Mean Corpuscular Hemoglobin 30.0 30.8 25-34 pg Mean Corpuscular Hemoglobin Concent 35.5 35.2 32-36 g/dl Platelet Count 286 202 130-400 K/uL Mean Platelet Volume 10.7 10.9 7.4-10.4 fL Neutrophils (%) (Auto) 84.3 55.2 % Lymphocytes (%) (Auto) 11.5 31.1 % Monocytes (%) (Auto) 3.8 9.8 % Eosinophils (%) (Auto) 0.1 3.3 % Basophils (%) (Auto) 0.1 0.3 % Neutrophils # (Auto) 12.48 5.37 1.4-6.5 K/uL Lymphocytes # (Auto) 1.71 3.03 1.2-3.4 K/uL Monocytes # (Auto) 0.57 0.95 0.11-0.59 K/uL Eosinophils # (Auto) 0.01 0.32 0-0.5 K/uL Basophils # (Auto) 0.02 0.03 0-0.2 K/uL RDW Standard Deviation 37.8 40.9 36.4-46.3 fL RDW Coefficient of Variation 12.4 12.7 11.5-14.5 % Immature Granulocyte % (Auto) 0.2 0.3 % Immature Granulocyte # (Auto) 0.03 0.03 0.00-0.02 K/uL Sodium Level 141 139 136-145 mmol/L Potassium Level 3.2 3.3 3.5-5.1 mmol/L Chloride Level 106 107 98-107 mmol/L Carbon Dioxide Level 22 27 21-32 mmol/L Anion Gap 13.0 5.0 3-11 mmol/L Blood Urea Nitrogen 12 10 7-18 mg/dl Creatinine 0.91 0.93 0.60-1.20 mg/dl Est Creatinine Clear Calc Drug Dose 98.8 96.7 ml/min Estimated GFR () 101.6 99.0 Estimated GFR (Non- 87.7 85.4 BUN/Creatinine Ratio 12.7 10.6 10-20 Random Glucose 85 97 70-99 mg/dl Calcium Level 9.5 8.3 8.5-10.1 mg/dl Magnesium Level 2.5 2.3 1.8-2.4 mg/dl Total Bilirubin 2.7 0.2-1 mg/dl Aspartate Amino Transf (AST/SGOT) 15 15-37 U/L Alanine Aminotransferase (ALT/SGPT) 32 12-78 U/L Alkaline Phosphatase 86 45-117 U/L Total Protein 7.8 6.4-8.2 gm/dl Albumin 4.5 3.4-5.0 gm/dl Globulin 3.3 2.5-4.0 gm/dl Albumin/Globulin Ratio 1.4 0.9-2 Lipase 106 73-393 U/L Human Chorionic Gonadotropin, Qual NEG NEG Urine Color DK YELLOW Urine Appearance CLEAR CLEAR Urine pH 6.0 4.5-7.5 Urine Specific [place] 1.038 1.000-1.030 Urine Protein TRACE NEG Urine Glucose (UA) NEG NEG Urine Ketones 4+ NEG Urine Occult Blood TRACE NEG Urine Nitrite NEG NEG Urine Bilirubin NEG NEG Urine Urobilinogen NEG NEG Urine Leukocyte Esterase NEG NEG Urine WBC (Auto) 1-5 0-5 /hpf Urine RBC (Auto) 0-4 0-4 /hpf Urine Hyaline Casts (Auto) 1-5 0-5 /lpf Urine Epithelial Cells (Auto) >30 0-5 /lpf Urine Bacteria (Auto) 2+ NEG Urine Opiates Screen NEG NEG Urine Methadone, Qualitative NEG NEG Urine Barbiturates NEG NEG Urine Phencyclidine (PCP) Level NEG NEG Ur Amphetamine/Methamphetamine NEG NEG MDMA (Ecstasy) Screen NEG NEG Urine Benzodiazepines Screen NEG NEG Urine Cocaine Metabolite NEG NEG Urine Marijuana (THC) POS NEG Lactic Acid Level 1.2 0.4-2.0 mmol/L Microbiology Results 05/07/17 Urine Culture, Received Pending
[2017-05-08] MEDS ORDERED: POTASSIUM CHLORIDE 20 MEQ TABCR PO STA (11:28)
[2017-05-08] MEDS: ONDANSETRON INJ 2 MG/ML 2 ML VIAL IV PRN (12:49)
[2017-05-08] MEDS: PROMETHAZINE HCL INJ 12.5 MG in SODIUM CHLORIDE 0.9% 50ML 50 ML IV PRN ×3 (13:30→21:58)
[2017-05-08 14:14] VITALS: BP 149/98; PULSE 71; O2SAT 99
[2017-05-08] MEDS: ALUMINUM/MAGNESIUM/SIMETH (MAALOX MAX) 30 ML UDC PO PRN ×2 (15:17→20:04)
[2017-05-08] MEDS ORDERED: LORAZEPAM 0.5 MG TAB PO PRN (16:15)
[2017-05-08] MEDS ORDERED: LORAZEPAM 0.5 MG TAB ONE (16:20)
[2017-05-08 16:28] VITALS: BP 145/97; PULSE 74; TEMP 37.1; O2SAT 99
[2017-05-08] MEDS ORDERED: DICYCLOMINE HCL 10 MG CAP PO PRN (18:45)
[2017-05-08] MEDS: MoRPHine SULFATE 2 MG/ML CARP IV PRN ×2 (20:14→21:58)
[2017-05-09 00:15] VITALS: BP 107/71; PULSE 87; TEMP 37.1; O2SAT 95
[2017-05-09 06:45] LABS: BASO % 0.2 %; BASO ABS # 0.02 K/uL (0-0.2); COMPLETE YES; EOS % 3.9 %; HEMATOCRIT 42.8 % (37-47); IG% 0.2 %; LYMPH % 35.2 %; LYMPH ABS # 3.71 K/uL (1.2-3.4); MEAN CORPUSCULAR HEMOGLOBIN 30.5 pg (25-34); MEAN PLATELET VOLUME 10.5 fL (7.4-10.4); MONO % 7.7 %; NEUT % 52.8 %; PLATELET COUNT 213 K/uL (130-400); RED BLOOD COUNT 4.92 M/uL (4.2-5.4); WHITE BLOOD COUNT 10.55 K/uL (4.8-10.8)
[2017-05-09 07:17] LABS: CALCIUM 8.9 mg/dl (8.5-10.1); CREATININE 0.87 mg/dl (0.60-1.20); MAGNESIUM 2.3 mg/dl (1.8-2.4); POTASSIUM 3.4 mmol/L (3.5-5.1)
[2017-05-09 08:05] VITALS: BP 108/71; PULSE 78; TEMP 36.8; O2SAT 95
[2017-05-09] MEDS ORDERED: POTASSIUM CHLORIDE 20 MEQ TABCR PO ONE (08:30)
--- NOTE | 2017-05-09 08:56 | Progress Note ---
Internal Med Progress Note Date of Service: May 09, 2017. Provider Documentation: SUBJECTIVE: Patient is doing better. Did not tolerate regular diet yesterday but today feeling better No nausea, vomiting since she is in hospital. Abdominal pain has resolved No constipation, diarrhea, fever, chills. OBJECTIVE: Vital Signs-as noted below Exam: General-AAOX3, no distress Neck-Supple, No JVD Lungs-AEBE, no wheezing, rales, rhonchi Heart-S1, S2 normal, no murmurs Abdomen-Soft, non tender, non distended, BS present Extremities-No edema Lab data as noted below. ASSESSMENT & PLAN: ASSESSMENT AND PLAN: This 26-year-old female known case of cyclical vomiting syndrome, presents with persistent nausea and vomiting. INTRACTABLE NAUSEA/VOMITING Known history of cyclic vomiting syndrome. Has had this for 11 years with all investigations in past negative. Gets these episodes once a month, self resolving within 3-5 days. This time severity was more and thus came to hospital. -Contributing factor: Anxiety -Diet: Did not tolerate regular diet yesterday, so had to change to full liquid again. Today tolerating full liquid, no nausea/vomiting --> advance to regular diet -Off IV Fluids -Urine toxicology screen positive for Marijuana. Explained at length about side effects and Cannabis hyperemesis syndrome. Understands and agrees to stop it. HYPOKALEMIA, MILD Secondary to above -Replace ANXIETY Reassurance given DVT PROPHYLAXIS TEDS DISPOSITION Observation status Ok to discharge home today if able to tolerate lunch- regular diet Vital Signs: Date Time Temp Pulse Resp B/P (MAP) Pulse Ox O2 Delivery O2 Flow Rate FiO2 05/09/17 08:05 36.8 78 20 108/71 (83) 95 05/09/17 00:15 37.1 87 18 107/71 (83) 95 Room Air 05/09/17 00:00 Room Air 05/08/17 20:00 Room Air 05/08/17 16:28 37.1 74 18 145/97 (113) 99 Room Air 05/08/17 16:00 Room Air 05/08/17 14:14 71 14 149/98 (115) 99 Room Air Lab Results: Results Past 24 Hours Test 05/09/17 06:26 Range/Units White Blood Count 10.55 4.8-10.8 K/uL Red Blood Count 4.92 4.2-5.4 M/uL Hemoglobin 15.0 12.0-16.0 g/dL Hematocrit 42.8 37-47 % Mean Corpuscular Volume 87.0 80-100 fL Mean Corpuscular Hemoglobin 30.5 25-34 pg Mean Corpuscular Hemoglobin Concent 35.0 32-36 g/dl Platelet Count 213 130-400 K/uL Mean Platelet Volume 10.5 7.4-10.4 fL Neutrophils (%) (Auto) 52.8 % Lymphocytes (%) (Auto) 35.2 % Monocytes (%) (Auto) 7.7 % Eosinophils (%) (Auto) 3.9 % Basophils (%) (Auto) 0.2 % Neutrophils # (Auto) 5.58 1.4-6.5 K/uL Lymphocytes # (Auto) 3.71 1.2-3.4 K/uL Monocytes # (Auto) 0.81 0.11-0.59 K/uL Eosinophils # (Auto) 0.41 0-0.5 K/uL Basophils # (Auto) 0.02 0-0.2 K/uL RDW Standard Deviation 40.2 36.4-46.3 fL RDW Coefficient of Variation 12.6 11.5-14.5 % Immature Granulocyte % (Auto) 0.2 % Immature Granulocyte # (Auto) 0.02 0.00-0.02 K/uL Sodium Level 141 136-145 mmol/L Potassium Level 3.4 3.5-5.1 mmol/L Chloride Level 108 98-107 mmol/L Carbon Dioxide Level 25 21-32 mmol/L Anion Gap 8.0 3-11 mmol/L Blood Urea Nitrogen 7 7-18 mg/dl Creatinine 0.87 0.60-1.20 mg/dl Est Creatinine Clear Calc Drug Dose 103.3 ml/min Estimated GFR () 107.3 Estimated GFR (Non- 92.6 BUN/Creatinine Ratio 8.0 10-20 Random Glucose 81 70-99 mg/dl Calcium Level 8.9 8.5-10.1 mg/dl Magnesium Level 2.3 1.8-2.4 mg/dl
[2017-05-09] MEDS: PANTOprazole INJ 40 MG in SYRINGE 0 ML IV SCH (11:05)
[2017-05-09] MEDS: MoRPHine SULFATE 2 MG/ML CARP IV PRN (12:28)
[2017-05-09] MEDS: ONDANSETRON INJ 2 MG/ML 2 ML VIAL IV PRN (12:28)
[2017-05-09] MEDS: PROMETHAZINE HCL INJ 12.5 MG in SODIUM CHLORIDE 0.9% 50ML 50 ML IV PRN (13:26)
[2017-05-09 16:22] VITALS: BP 133/88; PULSE 91; TEMP 37; O2SAT 97
[2017-05-09] MEDS ORDERED: NURSING VERBAL MED ORDER ONE (17:30)
[2017-05-09] MEDS ORDERED: METOCLOPRAMIDE HCL INJ 5 MG/ML 2 ML VIAL IV ONE (18:00)
[2017-05-09] MEDS: METOCLOPRAMIDE HCL 5 MG TAB PO SCH (20:37)
[2017-05-09] MEDS ORDERED: MoRPHine SULFATE 2 MG/ML CARP IV PRN (22:45)
[2017-05-09 23:37] VITALS: BP 101/64; PULSE 89; TEMP 37.1; O2SAT 96
[2017-05-10] MEDS: METOCLOPRAMIDE HCL 5 MG TAB PO SCH ×2 (06:28→11:21)
[2017-05-10 07:07] LABS: BASO % 0.2 %; BASO ABS # 0.02 K/uL (0-0.2); COMPLETE YES; EOS % 2.8 %; HEMATOCRIT 44.4 % (37-47); IG% 0.1 %; LYMPH % 32.8 %; LYMPH ABS # 3.02 K/uL (1.2-3.4); MEAN CELL VOLUME 87.4 fL (80-100); MEAN CORPUSCULAR HEMOGLOBIN 30.5 pg (25-34); MEAN CORPUSCULAR HGB CONC 34.9 g/dl (32-36); MEAN PLATELET VOLUME 10.6 fL (7.4-10.4); MONO % 6.4 %; NEUT % 57.7 %; PLATELET COUNT 221 K/uL (130-400); RED BLOOD COUNT 5.08 M/uL (4.2-5.4); WHITE BLOOD COUNT 9.22 K/uL (4.8-10.8)
[2017-05-10 07:11] VITALS: BP 105/68; PULSE 64; TEMP 37; O2SAT 96
[2017-05-10 08:04] LABS: BUN/CREATININE RATIO 9.2 (10-20); CALCIUM 9.1 mg/dl (8.5-10.1); CREATININE 0.97 mg/dl (0.60-1.20); MAGNESIUM 2.3 mg/dl (1.8-2.4); POTASSIUM 3.5 mmol/L (3.5-5.1)
--- NOTE | 2017-05-10 09:18 | Progress Note ---
Internal Med Progress Note Date of Service: May 10, 2017. Provider Documentation: SUBJECTIVE: Patient continued to have nausea, vomiting yesterday. Today feels better and tolerated full liquid diet and asking for soft diet. Denies any fever, chills, diarrhea. OBJECTIVE: Vital Signs-as noted below Exam: General-AAOX3, no distress Neck-Supple, No JVD Lungs-AEBE, no wheezing, rales, rhonchi Heart-S1, S2 normal, no murmurs Abdomen-Soft, non tender, non distended, BS present Extremities-No edema Lab data as noted below. ASSESSMENT & PLAN: ASSESSMENT AND PLAN: This 26-year-old female known case of cyclical vomiting syndrome, presents with persistent nausea and vomiting. INTRACTABLE NAUSEA/VOMITING : Known history of cyclic vomiting syndrome. Marijuana user, so possible cannabis hyperemesis syndrome. Has had this for 11 years with all investigations in past negative. Gets these episodes once a month, self resolving within 3-5 days. This time severity was more and thus came to hospital. -Contributing factor: Anxiety. No signs of acute inflammatory conditions on basis of HPI, exam and labs. -Diet: Did not tolerate regular diet x 2 days and now on full liquid--> advance it -Will add Reglan ACHS. IV Zofran, Phenargan PRN -Off IV Fluids -Plan is for EGD on May 19 which was already scheduled prior to admission -GI on board- discussed with FEDE Phillips. No further interventions recommended inpatient. -Urine toxicology screen positive for Marijuana. Explained at length about side effects and Cannabis hyperemesis syndrome. Understands and agrees to stop it. HYPOKALEMIA, MILD Secondary to above -Resolved. ANXIETY Reassurance given -Discussed with mother too-- had been on medications in past and was also diagnosed with bipolar disorder. -Will defer it to PCP to start medication DVT PROPHYLAXIS TEDS DISPOSITION Observation status Ok to discharge home today if able to tolerate lunch. Updated mom over phone. Vital Signs: Date Time Temp Pulse Resp B/P (MAP) Pulse Ox O2 Delivery O2 Flow Rate FiO2 05/10/17 08:00 Room Air 05/10/17 07:11 37.0 64 18 105/68 (80) 96 Room Air 05/10/17 00:00 Room Air 05/09/17 23:37 37.1 89 18 101/64 (76) 96 Room Air 05/09/17 20:00 Room Air 05/09/17 16:22 37.0 91 18 133/88 (103) 97 Room Air 05/09/17 16:00 Room Air Lab Results: Results Past 24 Hours Test 05/10/17 06:45 Range/Units White Blood Count 9.22 4.8-10.8 K/uL Red Blood Count 5.08 4.2-5.4 M/uL Hemoglobin 15.5 12.0-16.0 g/dL Hematocrit 44.4 37-47 % Mean Corpuscular Volume 87.4 80-100 fL Mean Corpuscular Hemoglobin 30.5 25-34 pg Mean Corpuscular Hemoglobin Concent 34.9 32-36 g/dl Platelet Count 221 130-400 K/uL Mean Platelet Volume 10.6 7.4-10.4 fL Neutrophils (%) (Auto) 57.7 % Lymphocytes (%) (Auto) 32.8 % Monocytes (%) (Auto) 6.4 % Eosinophils (%) (Auto) 2.8 % Basophils (%) (Auto) 0.2 % Neutrophils # (Auto) 5.32 1.4-6.5 K/uL Lymphocytes # (Auto) 3.02 1.2-3.4 K/uL Monocytes # (Auto) 0.59 0.11-0.59 K/uL Eosinophils # (Auto) 0.26 0-0.5 K/uL Basophils # (Auto) 0.02 0-0.2 K/uL RDW Standard Deviation 40.5 36.4-46.3 fL RDW Coefficient of Variation 12.7 11.5-14.5 % Immature Granulocyte % (Auto) 0.1 % Immature Granulocyte # (Auto) 0.01 0.00-0.02 K/uL Sodium Level 141 136-145 mmol/L Potassium Level 3.5 3.5-5.1 mmol/L Chloride Level 106 98-107 mmol/L Carbon Dioxide Level 29 21-32 mmol/L Anion Gap 6.0 3-11 mmol/L Blood Urea Nitrogen 9 7-18 mg/dl Creatinine 0.97 0.60-1.20 mg/dl Est Creatinine Clear Calc Drug Dose 92.7 ml/min Estimated GFR () 94.1 Estimated GFR (Non- 81.2 BUN/Creatinine Ratio 9.2 10-20 Random Glucose 79 70-99 mg/dl Calcium Level 9.1 8.5-10.1 mg/dl Magnesium Level 2.3 1.8-2.4 mg/dl
--- NOTE | 2017-05-10 09:55 | Gastrointestinal Consultation ---
Gastrointestinal Consultation Date of Consultation: May 10, 2017 Attending Physician: Dr. Christophe Tenorio Consulting Physician: Dr. Floyd Reason for Consultation: Cyclical vomiting History of Present Illness Patient is a 26 year old female patient of Dr. Anh Mills with a hx of cyclical vomiting who presented to the ED multiple times last week and was admitted on 05/07 with reports of continued nausea/vomiting and at that time she had some black specks in her emesis which was occult positive. She has remained hemodynamically stable, with Hb 15, and although she had hypokalemia on arrival , she is now w/o electrolyte disturbances. Since arrival, she has improved, on a liquid diet. Reglan seems to be effective in preventing vomiting since it was added yesterday, but she hasn't yet been able to tolerate solid foods. This morning she was up and around in her room, appearing well and discussing possible discharge. She has been followed by Stephen Lowry in GI and an OP EGD is scheduled for 06/07/17. She tells me that she and her mother want to " have other testing - to make sure there is nothing else wrong." Regarding other testing, chest and abdomen x-rays have been normal during this admission. A non contrast CT abd/pelvis was normal in 2016 and a Chest CTA was normal earlier this year. Abdominal US was completed as an OP last week and was normal. Past Medical/Surgical History Medical Problems: (1) Abdominal pain Status: Acute (2) Acute gastroenteritis Status: Acute (3) Anxiety State Nos Status: Chronic (4) Cyclic vomiting syndrome Status: Chronic (5) Depressive Disorder Nec Status: Chronic (6) Flank pain Status: Acute (7) Generalized abdominal pain Status: Acute (8) GERD (gastroesophageal reflux disease) Status: Chronic (9) Hypokalemia Status: Acute (10) Left flank pain Status: Acute (11) Nausea & vomiting Status: Acute (12) Nausea & vomiting Status: Acute (13) Upper GI bleed Status: Acute Family History FH: heart disease FH: lung disease Hypertension Social History Smoking Status: Former Smoker Alcohol Use: occasionally Drug Use: marijuana Marital Status: in relationship Housing Status: lives with family Occupation Status: employed Allergies Coded Allergies: Ketorolac Tromethamine (Verified Allergy, Unknown, DIFFICULTY BREATHING, ) Current Medications Home Meds and Scripts Medications Dose Route/Sig Max Daily Dose Days Date Category Dose Instructions Prilosec (Omeprazole) 20 Mg Capcr 40 Mg PO DAILY 05/04/17 Rx Zofran (Ondansetron HCl) 4 Mg Tab 4 Mg PO Q6H PRN 05/03/17 Reported Phenergan Suppository (Promethazine HCl) 25 Mg Supp 25 Mg [place] Q6H PRN 05/03/17 Reported Reglan (Metoclopramide HCl) 10 Mg Tab 10 Mg PO Q6H PRN 05/03/17 Reported NAUSEA Review of Systems Constitutional: No fever, No chills, No sweats, No weight loss, No weakness Eyes: No eye pain, No redness ENT: No sore throat, No trouble swallowing, No pain on swallowing Respiratory: No cough, No wheezing, No shortness of breath, No dyspnea on exertion Cardiac: No chest pain, No edema, No palpitations Abdomen: + see HPI Neuro: No memory loss, No weakness, No numbness/tingling, No vertigo, No balance problems Psych: No depression symptoms, No anxiety, No insomnia Heme: No abnormal bleeding/bruising, No night sweats Endo: No excessive thirst, No excessive urination Skin: No rash, No itch, No new/changing skin lesions, No jaundice Physical Exam Date Time Temp Pulse Resp B/P (MAP) Pulse Ox O2 Delivery O2 Flow Rate FiO2 05/10/17 08:00 Room Air 05/10/17 07:11 37.0 64 18 105/68 (80) 96 Room Air 05/10/17 00:00 Room Air 05/09/17 23:37 37.1 89 18 101/64 (76) 96 Room Air 05/09/17 20:00 Room Air 05/09/17 16:22 37.0 91 18 133/88 (103) 97 Room Air 05/09/17 16:00 Room Air General Appearance: no apparent distress Eyes: normal inspection, EOMI Neck: supple, no adenopathy, thyroid normal Respiratory/Chest: chest non-tender, lungs clear, normal breath sounds, no accessory muscle use Cardiovascular: regular rate, rhythm, no JVD, no murmur Abdomen: normal bowel sounds, non tender, soft, no organomegaly Extremities: normal inspection, no pedal edema, normal capillary refill Neurologic/Psych: alert, normal mood/affect, oriented x 3 Skin: normal color, no jaundice, warm/dry, no rash Laboratory Results Last 24 Hours Test 05/10/17 06:45 White Blood Count 9.22 K/uL Red Blood Count 5.08 M/uL Hemoglobin 15.5 g/dL Hematocrit 44.4 % Mean Corpuscular Volume 87.4 fL Mean Corpuscular Hemoglobin 30.5 pg Mean Corpuscular Hemoglobin Concent 34.9 g/dl Platelet Count 221 K/uL Mean Platelet Volume 10.6 fL Neutrophils (%) (Auto) 57.7 % Lymphocytes (%) (Auto) 32.8 % Monocytes (%) (Auto) 6.4 % Eosinophils (%) (Auto) 2.8 % Basophils (%) (Auto) 0.2 % Neutrophils # (Auto) 5.32 K/uL Lymphocytes # (Auto) 3.02 K/uL Monocytes # (Auto) 0.59 K/uL Eosinophils # (Auto) 0.26 K/uL Basophils # (Auto) 0.02 K/uL RDW Standard Deviation 40.5 fL RDW Coefficient of Variation 12.7 % Immature Granulocyte % (Auto) 0.1 % Immature Granulocyte # (Auto) 0.01 K/uL Sodium Level 141 mmol/L Potassium Level 3.5 mmol/L Chloride Level 106 mmol/L Carbon Dioxide Level 29 mmol/L Anion Gap 6.0 mmol/L Blood Urea Nitrogen 9 mg/dl Creatinine 0.97 mg/dl Est Creatinine Clear Calc Drug Dose 92.7 ml/min Estimated GFR () 94.1 Estimated GFR (Non- 81.2 BUN/Creatinine Ratio 9.2 Random Glucose 79 mg/dl Calcium Level 9.1 mg/dl Magnesium Level 2.3 mg/dl Impression Patient is a 26 year old female with (likely cannabinoid induced) cyclical vomiting syndrome. She is improved compared to the time of admission. Plan 1. No GI contraindication to discharge. 2. Agree with reglan ac/hs in the next few weeks but would avoid alf use due to possible adverse reactions. 3. Complete abstention from marijuana. Pt agrees with this plan. She tells me that she "wouldn't have started," if she "knew it could cause this." 4. Continue OP GI f/u. I have seen, examined, and agree with the exam as outlined above by CHATO Cuevas. -Improved and eating regular diet -Marijuana cessation
[2017-05-10] MEDS: PANTOprazole INJ 40 MG in SYRINGE 0 ML IV SCH (11:21)
[2017-05-10] MEDS ORDERED: MoRPHine SULFATE 2 MG/ML CARP IV PRN (12:45)
--- NOTE | 2017-05-10 13:50 | Discharge Summary ---
Discharge Summary Date of Service May 10, 2017. Discharge Summary Admission Date: May 07, 2017 at 19:35 Discharge Date: May 10, 2017 Discharge Disposition: Home Principal Diagnosis: 1. Intractable nausea/vomiting, likely cyclical vomiting syndrome 2. Hypokalemia Secondary Diagnoses/Problems: 1. Anxiety Procedures: IV Fluids IV Emetics PRN Consultations: GI Pending Studies/Follow-Up: Instructions / Follow-Up Instructions / Follow-Up MEDICATION CHANGES: Reglan 10 mg to be taken twice a day before meals. Change it to PRN after 2 days FOLLOW UP 1. Follow up with Dr Kristal Magana on 05/14/17 at 10:45 AM 2. Follow up with GI for EGD as scheduled Medication Reconciliation Continued Medications: Metoclopramide (Reglan) 10 Mg Tab 10 MG PO Q6H PRN for Nausea NAUSEA Omeprazole (Prilosec) 20 Mg Capcr 40 MG PO DAILY, #30 CAP Ondansetron Hcl (Zofran) 4 Mg Tab 4 MG PO Q6H PRN for Nausea Promethazine (Phenergan Suppository) 25 Mg Supp 25 MG [place] Q6H PRN for Nausea Admission Information HPI (per Admitting provider): HISTORY OF PRESENT ILLNESS: This is a 26-year-old female with past medical history significant for cyclic vomiting syndrome, possible cannabinoid hyperemesis presents with severe persistent nausea and vomiting. The patient has nausea and vomiting symptoms since last Wednesday. She was in the ER about 4 times since then and with fluids and nausea medication she improved and was discharged. Yesterday she followed with GI as an outpatient and GI did ultrasound of the abdomen which was unremarkable. Labs were also okay, but she came back today with persistent nausea, vomiting and right upper quadrant abdominal pain. She lives with her mother. Last time she smoked marijuana was in April 20 as per her mother . Last couple of episodes of vomiting she had slight amount of blood and when was in the ER a few days ago she also noticed some black specks and was occult blood positive. She says she has some low grade temperature last night. The patient currently received Dilaudid and Ativan in the ER and sleeping. All the history was given by the mother. Also per mother the patient did not have any chest pain or shortness of breath or cough. No headaches. Ambulating okay. No bowel movements for several days because last time she ate was on Wednesday. The patient is hemodynamically stable. Hospital Course ASSESSMENT AND PLAN: This 26-year-old female known case of cyclical vomiting syndrome, presents with persistent nausea and vomiting. INTRACTABLE NAUSEA/VOMITING : Known history of cyclic vomiting syndrome. Marijuana user, so possible cannabis hyperemesis syndrome. Has had this for 11 years with all investigations in past negative. Gets these episodes once a month, self resolving within 3-5 days. This time severity was more and thus came to hospital. -Contributing factor: Anxiety. No signs of acute inflammatory conditions on basis of HPI, exam and labs. -Diet: Did not tolerate regular diet x 2 days and now on full liquid --> advance it and tolerating diet well -Reglan ACHS. IV Zofran, Phenargan PRN. Steve continue with reglan ACHS x 2 days and than change it to PRN -Off IV Fluids -Plan is for EGD on May 19 which was already scheduled prior to admission -GI on board- discussed with FEDE Phillips. No further interventions recommended inpatient. -Urine toxicology screen positive for Marijuana. Explained at length about side effects and Cannabis hyperemesis syndrome. Understands and agrees to stop it. HYPOKALEMIA, MILD Secondary to above -Resolved. ANXIETY Reassurance given -Discussed with mother too-- had been on medications in past and was also diagnosed with bipolar disorder. -Will defer it to PCP to start medication DVT PROPHYLAXIS TEDS DISPOSITION Observation status Eager to be discharged. Ok to discharge home today Updated mom today. Total time spent on discharge = 28 minutes This includes examination of the patient, discharge planning, medication reconciliation, and communication with other providers. Discharge Instructions Discharge Goals Goal(s): Improve disease control Activity Recommendations Activity Limitations: resume your previous activity . Instructions / Follow-Up Instructions / Follow-Up MEDICATION CHANGES: Reglan 10 mg to be taken twice a day before meals. Change it to PRN after 2 days FOLLOW UP 1. Follow up with Dr Kristal Magana on 05/14/17 at 10:45 AM 2. Follow up with GI for EGD as scheduled Current Hospital Diet Patient's current hospital diet: Regular Diet, Low Lactose Diet Discharge Diet Recommended Diet: Regular Diet (as tolerated) Pending Studies Studies pending at discharge: no Medical Emergencies . Who to Call and When: Medical Emergencies: If at any time you feel your situation is an emergency, please call 911 immediately. . Non-Emergent Contact Non-Emergency issues call your: Primary Care Provider . . "Provider Documentation" section prepared by aCrrie Tenorio. . VTE Core Measure Inpt VTE Proph given/why not?: SCD's
[2017-05-10] MEDS ORDERED: METO-157 PO (13:54)
[2017-05-10 13:57] VITALS: BP 105/68; PULSE 64; TEMP 37; O2SAT 96
== END 2017-05-10 14:15 | disposition home or self-care (01) ==
LOC: C.EDB 16:21 → C.MS2W 19:35 → ENRESERV 19:43
PROVIDERS: ADMIT Internal Medicine; ATTEND Internal Medicine
DX: R11.2 Nausea with vomiting, unspecified (principal); E87.6 Hypokalemia; K21.9 Gastro-esophageal reflux disease without esophagitis; F41.9 Anxiety disorder, unspecified; F32.9 Major depressive disorder, single episode, unspecified; Z87.891 Personal history of nicotine dependence; Z82.49 Family history of ischemic heart disease and other diseases of the circulatory system; Z79.899 Other long term (current) drug therapy

== ENCOUNTER 2017-05-28 12:52 | Emergency (ER) | payer BC ==
[~2017-05-28] VITALS: Ht 160 cm; Wt 92.0 kg
[2017-05-28 12:59] VITALS: TEMP 37; Ht 160 cm; Wt 92.0 kg
[2017-05-28] MEDS ORDERED: METOCLOPRAMIDE HCL INJ 5 MG/ML 2 ML VIAL IV STA (13:30)
[2017-05-28] MEDS ORDERED: DiphenhydrAMINE HCL 50 MG/ML VIAL IV STA (13:30)
[2017-05-28] MEDS ORDERED: LORAZEPAM 2 MG/ML 1 ML VIAL IV STA (13:30)
[2017-05-28] MEDS ORDERED: SODIUM CHLORIDE 0.9% 1000ML 2,000 ML IV STA (13:30)
[2017-05-28 13:58] LABS: BASO % 0.1 %; BASO ABS # 0.01 K/uL (0-0.2); COMPLETE YES; EOS % 0.1 %; HEMATOCRIT 44.1 % (37-47); IG% 0.4 %; LYMPH % 13.1 %; LYMPH ABS # 1.97 K/uL (1.2-3.4); MEAN CELL VOLUME 89.1 fL (80-100); MEAN CORPUSCULAR HEMOGLOBIN 31.5 pg (25-34); MEAN CORPUSCULAR HGB CONC 35.4 g/dl (32-36); MEAN PLATELET VOLUME 9.4 fL (7.4-10.4); MONO % 5.6 %; NEUT % 80.7 %; PLATELET COUNT 266 K/uL (130-400); RED BLOOD COUNT 4.95 M/uL (4.2-5.4); WHITE BLOOD COUNT 15.05 K/uL (4.8-10.8)
[2017-05-28] MEDS ORDERED: RANITIDINE HCL 50 MG/100 ML D5W IV STA (14:11)
[2017-05-28] MEDS ORDERED: GI COCKTAIL PO STA (14:11)
[2017-05-28 14:16] LABS: BUN/CREATININE RATIO 12.2 (10-20); CALCIUM 9.8 mg/dl (8.5-10.1); CREATININE 0.85 mg/dl (0.60-1.20); POTASSIUM 3.2 mmol/L (3.5-5.1)
--- NOTE | 2017-05-28 14:47 | DIAGNOSTIC IMAGING REPORT ---
ABDOMEN 2VIEW W/PA CHEST RTN HISTORY: 26 years-old Female acute nausea and vomiting with abdominal pain COMPARISON: Acute abdominal series radiograph 04/01/2017 TECHNIQUE: Frontal view of the chest with erect and supine views of the abdomen FINDINGS: Cardiomediastinal and hilar silhouettes are within normal limits. Minimal hazy opacity of the left lung base is thought to be secondary to composite density artifact. No pneumothorax, pleural effusion or focal airspace consolidation. There is mild convex left curvature of the lumbar spine. The bones of the chest appear intact. Cholecystectomy clips are noted. No pneumoperitoneum on the upright projection. Bowel gas pattern is nonobstructive. No urolithiasis seen. No fracture. IMPRESSION: Unremarkable acute abdominal series radiographs. No bowel obstruction. The above report was generated using voice recognition software. It may contain grammatical, syntax or spelling errors. Electronically signed by: Reinier Frazier M.D. 05/28/2017 2:45 PM Dictated Date/Time: 05/28/2017 2:43 PM
[2017-05-28] MEDS ORDERED: ALUMINUM/MAGNESIUM SUSP 30 ML UDC ONE (15:16)
[2017-05-28] MEDS ORDERED: LIDOCAINE HCL 2% VISC SOLN 20 ML UDC ONE (15:16)
[2017-05-28 18:03] VITALS: BP 121/74; PULSE 95; O2SAT 97
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
== END 2017-05-28 18:04 | disposition home or self-care (01) ==
LOC: C.EDB 12:54 → C.EDC 18:04
DX: R11.2 Nausea with vomiting, unspecified (principal); R19.7 Diarrhea, unspecified; F12.10 Cannabis abuse, uncomplicated; F41.9 Anxiety disorder, unspecified; F32.9 Major depressive disorder, single episode, unspecified; K21.9 Gastro-esophageal reflux disease without esophagitis; N83.209 Unspecified ovarian cyst, unspecified side; Z87.440 Personal history of urinary (tract) infections; Z90.49 Acquired absence of other specified parts of digestive tract; Z98.890 Other specified postprocedural states; Z79.899 Other long term (current) drug therapy; Z82.49 Family history of ischemic heart disease and other diseases of the circulatory system